=== PATIENT | female | born 1995 | race African-American/Black ===

== ENCOUNTER 2018-10-14 22:35 | Inpatient (IN) ==
[2018-10-14 22:57] LABS: Apearance,Urine CLEAR (Clear); Bilirubin,Urine Negative (Negative); Blood, Urine Moderate mg/dL (Negative); Glucose,Urine (UA) Negative (Negative); Ketones,Urine Negative (Negative); Nitrite,Urine Negative (Negative); Protein,Urine Negative; RBC,Urine 3 /HPF (0-4); Squamous Epithelial Cell,Urine Occasional /HPF (0-10); Urine Color Colorless (Yellow); Urine Specific Gravity 1.001 (1.001-1.035); Urine Urobilinogen < 2.0 EU/DL (0.2-1.0); WBC,Urine 3 /HPF (0-6)
[2018-10-14] MEDS ORDERED: AMPICILLIN INJ 2,000 MG in SODIUM CHLORIDE 0.9% 100 ML IV ONE (23:22)
[2018-10-14] MEDS ORDERED: ONDANSETRON 4 MG/2 ML VIAL IV ONE (23:22)
[2018-10-14] MEDS ORDERED: MEPERIDINE 50 MG/1 ML VIAL IV ONE (23:22)
[2018-10-14] MEDS ORDERED: LACTATED RINGERS 1,000 ML IV SCH (23:30)
[2018-10-14] MEDS ORDERED: MEPERIDINE 25 MG/1 ML VIAL ONE (23:33)
[2018-10-15] MEDS ORDERED: MEPERIDINE 50 MG/1 ML VIAL IV PRN (01:15)
[2018-10-15] MEDS ORDERED: ONDANSETRON 4 MG/2 ML VIAL IV PRN ×3 (01:15→04:56)
[2018-10-15] MEDS ORDERED: MEPERIDINE 25 MG/1 ML VIAL ONE (02:41)
[2018-10-15] MEDS ORDERED: FAMOTIDINE 20 MG/2 ML VIAL IV SCH (03:00)
[2018-10-15] MEDS ORDERED: LACTATED RINGERS 1,000 ML IV SCH ×2 (03:00→05:00)
[2018-10-15] MEDS ORDERED: CITRIC ACID/SODIUM CITRATE 30 ML UDCUP PO ONE (03:00)
[2018-10-15] MEDS ORDERED: ePHEDrine 50 MG/ML AMP IV PRN (03:01)
[2018-10-15 03:11] LABS: Basophils % 0.2 % (0.0-0.8); Eosinophils # 0.1 10*3/uL (0.0-0.87); Eosinophils % 0.4 % (0.00-10.9); Hematocrit 33.6 VOL% (35.7-47.0); Hemoglobin 10.8 GM/DL (12.0-16.0); Immature Granulocytes % 0.6 %; Immature Granulocytes Absolute 0.07 #; Lymphocytes # 2.2 10*3/uL (1.4-4.0); Lymphocytes % 17.6 % (21.3-54.2); Mean Corpuscular HGB Conc 32.1 GM/DL (32-36); Mean Corpuscular Volume 100.3 FL (87-102); Mean Platelet Volume 12.2 FL (9.6-12.0); Monocytes % 4.8 % (1.7-12.7); Neutrophils % 76.4 % (38.7-73.9); Platelet Count 236 T/CUMM (130-400); Red Blood Count 3.35 MC/CUMM (3.8-5.5); Red Cell Distribution Width 13.6 % (9.3-17.3); White Blood Count 12.4 T/CUMM (4-12)
[2018-10-15] MEDS ORDERED: fentaNYL 2 MCG/ROPIV 0.2% EPID 100 ML EPIDURAL SCH (03:30)
[2018-10-15] MEDS ORDERED: OXYTOCIN/LR 0 UNIT/0 ML BAG IV ONE (03:31)
[2018-10-15] MEDS ORDERED: TRANEXAMIC ACID 1,000 MG/10 ML VIAL ONE (03:31)
[2018-10-15] MEDS ORDERED: miSOPROStol 200 MCG TABLET ONE (03:31)
[2018-10-15] MEDS ORDERED: METHYLERGONOVINE 0.2 MG/1 ML AMP ONE (03:31)
[2018-10-15] MEDS ORDERED: LIDOCAINE 1% 50 ML VIAL ONE (03:37)
[2018-10-15] MEDS ORDERED: TERBUTALINE 1 MG/1 ML VIAL SUBCUT ONE ×2 (03:42→05:13)
[2018-10-15] MEDS ORDERED: OXYTOCIN/LR 30 UNIT/1,000 ML BAG IV ONE (03:59)
[2018-10-15] MEDS ORDERED: ceFAZolin 2,000 MG in PREMIX 1 EACH IV ONE (04:00)
[2018-10-15] MEDS ORDERED: OXYTOCIN 10 UNIT/ML VIAL ONE (04:04)
[2018-10-15 04:46] LABS: Cord Venous Blood HCO3 16.9 MMOL/L; Cord Venous Blood PCO2 72.9 MMHG
[2018-10-15] MEDS ORDERED: MORPHINE 10 MG/10 ML VIAL ONE (04:53)
[2018-10-15] MEDS ORDERED: ACETAMINOPHEN 325 MG TABLET PO PRN (04:56)
[2018-10-15] MEDS ORDERED: SODIUM BICARBONATE 2.4 MEQ/5 ML VIAL ONE (04:56)
[2018-10-15] MEDS ORDERED: OXYTOCIN/LR 20 UNIT/1,000 ML BAG IV ONE (04:56)
[2018-10-15] MEDS ORDERED: PHENYLEPHRINE 1 MG/10 ML SYRINGE IV ONE (04:56)
[2018-10-15] MEDS ORDERED: ONDANSETRON 4 MG/2 ML VIAL ONE (04:56)
[2018-10-15] MEDS ORDERED: MAGNESIUM HYDROXIDE SUSP 30 ML UDCUP PO PRN (04:56)
[2018-10-15] MEDS ORDERED: RHO(D) IMMUNE GLOBULIN 300 MCG SYRINGE IM ONE (04:56)
[2018-10-15] MEDS ORDERED: LIDOCAINE MPF 2% /EPI 20 ML VIAL ONE (04:56)
[2018-10-15] MEDS ORDERED: OXYTOCIN 10 UNIT/ML VIAL IM ONE (05:23)
[2018-10-15] MEDS ORDERED: AMPICILLIN INJ 2,000 MG in SODIUM CHLORIDE 0.9% 100 ML IV SCH (06:00)
[2018-10-15 07:02] LABS: Apearance,Urine CLEAR (Clear); Bacteria,Urine Occasional /HPF (Few); Bilirubin,Urine Negative (Negative); Blood, Urine Small mg/dL (Negative); Glucose,Urine (UA) Negative (Negative); Ketones,Urine 20 mg/dL (Negative); Mucus,Urine Occasional /LPF (Occasional); Nitrite,Urine Negative (Negative); Protein,Urine Negative; RBC,Urine 8 /HPF (0-4); Squamous Epithelial Cell,Urine Occasional /HPF (0-10); Urine Color Yellow (Yellow); Urine Specific Gravity 1.014 (1.001-1.035); WBC,Urine 1 /HPF (0-6)
[2018-10-15] MEDS ORDERED: diphenhydrAMINE 50 MG/1 ML VIAL IM PRN (08:57)
[2018-10-15] MEDS ORDERED: diphenhydrAMINE 50 MG/1 ML VIAL IV PRN (09:03)
[2018-10-15] MEDS ORDERED: diphenhydrAMINE 50 MG/1 ML VIAL ONE (09:05)
[2018-10-15] MEDS: hydrOXYzine HCL 25 MG TABLET PO PRN ×2 (10:45→15:10)
[2018-10-15] MEDS: ceFAZolin 1,000 MG in SYRINGE 1 EACH IV SCH ×2 (12:29→20:30)
[2018-10-15] MEDS: DOCUSATE SODIUM 100 MG CAPSULE PO SCH ×2 (15:01→21:06)
[2018-10-15] MEDS: MULTIVITAMIN (PRENATAL) TABLET PO SCH (15:01)
[2018-10-15 17:08] LABS: Basophils % 0.2 % (0.0-0.8); Eosinophils % 0.2 % (0.00-10.9); Hematocrit 28.6 VOL% (35.7-47.0); Hemoglobin 8.9 GM/DL (12.0-16.0); Immature Granulocytes % 0.7 %; Immature Granulocytes Absolute 0.09 #; Lymphocytes # 1.9 10*3/uL (1.4-4.0); Mean Corpuscular HGB Conc 31.1 GM/DL (32-36); Mean Corpuscular Volume 101.4 FL (87-102); Mean Platelet Volume 11.4 FL (9.6-12.0); Monocytes % 6.4 % (1.7-12.7); Neutrophils % 77.5 % (38.7-73.9); Platelet Count 191 T/CUMM (130-400); Red Blood Count 2.82 MC/CUMM (3.8-5.5); Red Cell Distribution Width 13.3 % (9.3-17.3); White Blood Count 12.7 T/CUMM (4-12)
[2018-10-16] MEDS: IBUPROFEN 800 MG TABLET PO PRN ×3 (02:23→20:08)
[2018-10-16 05:55] LABS: Basophils % 0.2 % (0.0-0.8); Eosinophils # 0.1 10*3/uL (0.0-0.87); Eosinophils % 0.8 % (0.00-10.9); Hematocrit 31.7 VOL% (35.7-47.0); Hemoglobin 9.9 GM/DL (12.0-16.0); Immature Granulocytes Absolute 0.14 #; Lymphocytes # 2.9 10*3/uL (1.4-4.0); Lymphocytes % 20.3 % (21.3-54.2); Mean Corpuscular HGB Conc 31.2 GM/DL (32-36); Mean Corpuscular Volume 101.6 FL (87-102); Mean Platelet Volume 10.9 FL (9.6-12.0); Monocytes % 5.3 % (1.7-12.7); Neutrophils % 72.4 % (38.7-73.9); Platelet Count 206 T/CUMM (130-400); Red Blood Count 3.12 MC/CUMM (3.8-5.5); Red Cell Distribution Width 13.5 % (9.3-17.3)
[2018-10-16] MEDS: DOCUSATE SODIUM 100 MG CAPSULE PO SCH ×3 (07:57→20:11)
[2018-10-16] MEDS: MULTIVITAMIN (PRENATAL) TABLET PO SCH ×2 (07:57→09:05)
[2018-10-16] MEDS: SIMETHICONE CHEW 80 MG TABLET PO PRN ×3 (07:57→22:21)
[2018-10-16] MEDS ORDERED: BISACODYL 5 MG TABLET PO PRN (11:19)
[2018-10-16] MEDS ORDERED: METOCLOPRAMIDE 10 MG TABLET PO SCH (12:00)
[2018-10-16] MEDS ORDERED: BISACODYL 10 MG SUPP RECTAL PRN (14:06)
[2018-10-16] MEDS ORDERED: oxyCODONE/ACETAMINOPHEN 5-325 MG TABLET PO PRN ×2 (20:26)
[2018-10-17] MEDS: IBUPROFEN 800 MG TABLET PO PRN ×2 (04:23→10:47)
[2018-10-17 07:41] VITALS: BP 137/89
[2018-10-17] MEDS: DOCUSATE SODIUM 100 MG CAPSULE PO SCH (08:06)
[2018-10-17] MEDS: MULTIVITAMIN (PRENATAL) TABLET PO SCH (08:06)
== END 2018-10-17 12:30 | disposition home or self-care (01) | DRG 540 ==
LOC: N.LDOUT 22:35 → N.LD 22:38 → N.OB 10-15 08:55
PROVIDERS: ADMIT Obstetrics & Gynecology; ATTEND Obstetrics & Gynecology
PROC: LDCSECT (ICD-10-PCS; 2018-10-15 04:11)